=== PATIENT | female | born 1995 | race Caucasian/White ===

== ENCOUNTER 2016-11-13 14:12 | Emergency (ER) | payer OTHER ==
[2015-05-22 05:38] VITALS: BMI 33.3
[~2016-11-13 14:12] MED LIST: FERROUS SULFAT325 MG PO; IBUPROFEN600 MG PO; PERCOCET 5-3251 TAB PO; PRENATAL COMPLE1 TAB PO
== END 2016-11-13 19:00 | disposition home or self-care (01) ==
LOC: D.ER 14:12
DX: S60.212A Contusion of left wrist, initial encounter (principal); S30.1XXA Contusion of abdominal wall, initial encounter; V49.40XA Driver injured in collision with unspecified motor vehicles in traffic accident, initial encounter; Y93.89 Activity, other specified; Y92.410 Unspecified street and highway as the place of occurrence of the external cause; S16.1XXA Strain of muscle, fascia and tendon at neck level, initial encounter

== ENCOUNTER → 2017-02-13 22:10 | Outpatient (CLI) | payer OTHER ==
[2015-05-22 05:38] VITALS: BMI 33.3
[2017-02-13 22:41] LABS: APPEARANCE CLEAR (CLEAR); BILIRUBIN NEGATIVE (NEGATIVE); COLOR YELLOW (YELLOW); GLUCOSE NEGATIVE (NEGATIVE); KETONE NEGATIVE (NEGATIVE); LEUKOCYTE ESTERASE NEGATIVE (NEGATIVE); NITRITE NEGATIVE (NEGATIVE); PROTEIN NEGATIVE (NEGATIVE); SPECIFIC GRAVITY 1.015 (1.005-1.020); UROBILINOGEN NORMAL (NORMAL)
== END | disposition home or self-care (01) ==
LOC: D.LDO 22:10
PROVIDERS: Obstetrics & Gynecology
DX: O26.893 Other specified pregnancy related conditions, third trimester (principal); Z3A.31 31 weeks gestation of pregnancy

== ENCOUNTER → 2017-03-29 20:06 | Outpatient (CLI) | payer MEDICAID ==
[2015-05-22 05:38] VITALS: BMI 33.3
[2017-03-29 21:18] LABS: APPEARANCE CLEAR (CLEAR); BILIRUBIN NEGATIVE (NEGATIVE); COLOR YELLOW (YELLOW); GLUCOSE NEGATIVE (NEGATIVE); KETONE NEGATIVE (NEGATIVE); LEUKOCYTE ESTERASE 1+ (NEGATIVE); NITRITE NEGATIVE (NEGATIVE); PROTEIN NEGATIVE (NEGATIVE); SPECIFIC GRAVITY 1.005 (1.005-1.020); UROBILINOGEN NORMAL (NORMAL)
[2017-03-29 21:20] LABS: BACTERIA FEW /hpf (NONE SEEN); WHITE CELLS - URINE 0-5 /hpf (0-5)
== END | disposition home or self-care (01) ==
LOC: D.LDO 20:06
PROVIDERS: Obstetrics & Gynecology
DX: Z34.83 Encounter for supervision of other normal pregnancy, third trimester (principal); Z3A.37 37 weeks gestation of pregnancy

== ENCOUNTER 2017-04-12 11:15 | Inpatient (IN) | payer MEDICAID ==
[~2017-04-12] VITALS: Ht 170.2 cm; Wt 105.7 kg
[2017-04-12 12:15] VITALS: BP 120/61; Ht 170.2 cm; Wt 105.7 kg
[2017-04-12 13:01] LABS: HEMATOCRIT 32.4 % (36.0-48.0); HEMOGLOBIN 10.5 g/dL (12-16); MCH 26.3 pg (26.0-34.0); MCHC 32.4 g/dL (31.0-37.0); MEAN PLATELET VOLUME 9.3 fL (7.4-10.4); RDW 13.4 % (11.5-14.5); WBC 9.9 10x3/uL (4.8-10.8)
[2017-04-12 19:08] VITALS: BP 126/67
--- NOTE | 2017-04-12 19:08 | NUR ---
RN TO PT BS FOR PRAVEEN. PT RESTING IN BED IN HIGH FOWLERS POSITION, IN NO ACUTE DISTRESS. PT IS A 21YO G2 NOW P2 WITH OF VIABLE MALE TODAY @ 1555. @ 39.2 WKS GESTATION. PT WITH SUPERFICIAL PERINIAL LACERATION AND REPAIR. AAOX3. HR REGULAR. LUNGS CTAB. ABDOMEN SOFT AND NON TENDER. BS ACTIVE TIMES 4. FUNDUS FIRM AND ML @ 1/U. LOCHIA RUBRA SMALL. PT HAS NOT VOIDED SINCE CATHETER WAS REMOVED PRIOR TO . PT STATES SHE HAS PASSED GAS BUT HAS NOT HAD A BM SINCE . EPIDURAL REMAINS IN PLACE BUT IS NOT INFUSING. DRESSING C/D/I. NS WITH 20 UNITS PITOCIN INFUSING VIA PUMP AT 25CC/HR TO EXISITING 18G IN LEFT WRIST. NO REDNESS OR EDEMA NOTED AT SITE. PT TOLERATING REGULAR DIET WITHOUT DIFFICULTY. PT WAS HAVING DIFFICULTY RAISING LEFT LEG, REMAINED NUMB. PT CAN NOW LIFT BOTH LEGS AND IS HAVING NO DIFFICULTY MOVING. WILL PREPARE TO AMBULATE PT TO BR AND PERFORM JESSE CARE. PT TOLERATING REGULAR DIET WITHOUT DIFFICULTY. BED IN LOW POSITION, SIDE RAILS UP TIMES 2, CALL LIGHT AND PHONE IN REACH. SO REMAINS AT PT BS FOR SUPPORT AND ASSISTANCE. WILL CONT TO MONITOR PT STATUS.
--- NOTE | 2017-04-12 19:30 | NUR ---
PP ROOM 1257 PREPARED FOR PT TRANSFER. RN RETURNS TO PT ROOM TO ASSIST PT TO BR. PT NOW INFANT. PT INSTRUCTED TO CALL WHEN BREASTFEED WAS COMPLETE TO AMBULATE. PT VERBALIZED UNDERSTANDING. BED IN LOW POSITION, SIDE RAILS UP TIMES 2, CALL LIGHT AND PHONE IN REACH. INFANT REMAINS AT PT BS FOR COUPLET CARE. SO REMAINS AT PT BS FOR SUPPORT AND ASSISTANCE. WILL CONT TO MONITOR PT STATUS.
--- NOTE | 2017-04-12 20:43 | NUR ---
RN CALLED TO PT BS. PT STATES SHE IS DONE AND READY TO AMBULATE. PT FAMILY TAKEN TO CLEAN PP ROOM 1257. INFANT TRANSFERED TO NURSERY VIA OPEN CRIB WHILE TRANSPORTING FAMILY, THEN TRANSPORTED TO ROOM 1257 TO CONT COUPLET CARE WITH FOB. ID BANDS VERIFIED TIMES 2. RN RETURNS TO PT ROOM. IV SALINE LOCKED. EPIDURAL REMOVED, TIP INTACT. TIP SHOWN TO PT FOR VERIFICATION. PT AMBULATED TO BR WITH MINIMAL ASSISTANCE. PT ABLE TO VOID. JESSE CARE PERFORMED USING BETADINE AND WATER. PT CLEANED SELF WITH WASH CLOTHES. CLEAN GOWN PLACED. JESSE PAD AND PANTIES PLACED. PT AMBULATED TO CLEAN PP ROOM 1257 TO JOIN FOB AND INFANT. PT AMBULATED WITHOUT DIFFICULTY. PT C/O PAIN, RATES 6/10, REQUESTS MEDICATION. 1 TAB IBUPROFEN AND 1 TAB DEMEROL 50MG PROVIDED TO PT AT THIS TIME. 2100 DOSE OF MOM PROVIDED. FRESH LINENS PLACED IN ROOM WITH ADDITIONAL JESSE CARE SUPPLIES. LINENS PROVIDED TO PT FOB FOR NIGHT. PT DENIES ANY FURTHER NEEDS AT THIS TIME. BED IN LOW POSITION, SIDE RAILS UP TIMES 2, CALL LIGHT AND PHONE IN REACH. SO REMAINS AT PT BS FOR SUPPORT AND ASSISTANCE. REMAINS AT PT BS FOR COUPLET CARE. WILL CONT TO MONITOR PT STATUS.
--- NOTE | 2017-04-12 21:51 | NUR ---
RN TO PT BS FOR ROUNDS. PT RESTING IN BED IN SEMI-FOWLERS POSITION, HOLDING , PT IN NO ACUTE DISTESS. PT DENIES ANY NEEDS AT THIS TIME. BED IN LOW POSITION, SIDE RAILS UP TIMES 2, CALL LIGHT AND PHONE IN REACH. INFANT REMAINS AT PT BS FOR COUPLET CARE. SO REMAINS AT PT BS FOR SUPPORT AND ASSISTANCE. WILL CONT TO MONITOR PT STATUS.
--- NOTE | 2017-04-12 23:37 | NUR ---
RN TO PT BS FOR ROUNDS. PT RESTING IN BED IN SEMI-FOWLERS POSITION, HOLDING , IN NO ACUTE DISTRESS. PT REQUESTS TEMP BE ADJUSTED IN ROOM. PROVIDED. PT DENIES ANY FURTHER NEEDS AT THIS TIME. INFANT REMAINS AT PT BS FOR COUPLET CARE. SO REMAINS AT PT BS FOR SUPPORT AND ASSISTANCE. WILL CONT TO MONITOR PT STATUS.
--- NOTE | 2017-04-13 01:35 | NUR ---
RN TO PT BS FOR ROUNDS. PT RESTING IN BED IN SEMI-FOWLERS POSITION, WITH EYES CLOSED, IN NO ACUTE DISTRESS. RESPIRATIONS EVEN AND UNLABORED. BED IN LOW POSITION, SIDE RAILS UP TIMES 2, CALL LIGHT AND PHONE IN REACH. REMAINS AT PT BS FOR COUPLET CARE. SO REMAINS AT PT BS FOR SUPPORT AND ASSISTANCE. WILL CONT TO MONITOR PT STATUS.
--- NOTE | 2017-04-13 03:10 | NUR ---
RN TO PT BS FOR ROUNDS. PT RESTING IN BED IN SEMI-FOWLERS POSITION INFANT. PT IN NO ACUTE DISTRESS. PT DENIES ANY NEEDS AT THIS TIME. TREAT BOX PROVIDED TO PT, SANDWICH TRAY PROVIDED TO PT SO. BED IN LOW POSITION, SIDE RAILS UP TIMES 2, CALL LIGHT AND PHONE IN REACH. SO REMAINS AT PT BS FOR SUPPORT AND ASSISTANCE. INFANT REMAINS AT PT BS FOR COUPLET CARE. WILL CONT TO MONITOR PT STATUS.
--- NOTE | 2017-04-13 05:11 | NUR ---
PAIN /, REQUESTS DEMEROL AND MOTRIN, STATES THAT SHE IS CRAMPING AND HAVING BURNING AND STINGING TO PERINEAL REPAIR. MEDS GIVEN PER REQUEST, DENIES ADDITIONAL NEEDS. S/O REMAINS AT BEDSIDE. BED IN LOW POSITION WITH UPPER SIDE RAILS RAISED X2. CL AND PHONE WITHIN PT REACH. WILL CONT TO MONITOR AND ASSIST PRN.
[2017-04-13 05:24] LABS: HEMATOCRIT 29.3 % (36.0-48.0); HEMOGLOBIN 9.4 g/dL (12-16); MCH 26.3 pg (26.0-34.0); MCHC 32.1 g/dL (31.0-37.0); MCV 82.1 fL (80.0-100.0); MEAN PLATELET VOLUME 9.3 fL (7.4-10.4); RBC 3.57 10x6/uL (4.00-5.40); RDW 13.5 % (11.5-14.5); WBC 10.8 10x3/uL (4.8-10.8)
[2017-04-13 07:24] LABS: RAPID PLASMA REAGIN Non Reactive (Non Reactive)
--- NOTE | 2017-04-13 07:30 | OP ---
PATIENT NAME: TRISHA IRVING MEDICAL RECORD: [id number] :94 LOCATION:[id number] ADMISSION DATE:04/12/17 SURGEON: REID MENDOZA MD DATE OF OPERATION: 04/12/2017 Delivery Note Spontaneous vaginal delivery of male weighing 8 pounds 3 ounces; 9 and 10 Apgars, no episiotomy, epidural anesthesia. Second-degree midline laceration repaired using 2-0 chromic suture. Spontaneous delivery of intact-appearing placenta. ESTIMATED BLOOD LOSS: 400 cc. COMPLICATIONS OF DELIVERY: None. TRANSINT:[id number] Voice Confirmation ID: [id number] DOCUMENT ID: [id number] REID MENDOZA MD at 0730 CC: [id number] DICTATION DATE: 04/12/17 1611 HAT BLOCKER: 04/12/17 1918 ADM IN [facility] [address] [place] [address]
--- NOTE | 2017-04-13 07:30 | NUR ---
Assessment completed as charted on flowsheet. Pt rates pain at 3/10. NO pain or discomfort with voids, fundus firm at u/u with light bleeding, she denies any clots with voids. Family at bedside, in crib. Pt denies any needs.
--- NOTE | 2017-04-13 09:00 | NUR ---
Explained to pt that due to pt volume would she be ok to transfer back to l/d until time of discharge, she is agreeable and denies any concerns. Amb to room 1278, orient room and nursery notified.
--- NOTE | 2017-04-13 10:45 | NUR ---
Large cup of ice per pt request. Continue to rate pain at 3/10 and denies any other needs at this time.
--- NOTE | 2017-04-13 11:32 | NUR ---
50MG DEMEROL X1 TAB AND 600MG MOTRIN X1 TAB GIVEN PER PT REQUEST FOR PAIN RATED 8/10 DESCRIBED CRAMPING. PT DENIES FURTHER NEEDS AT THIS TIME.
--- NOTE | 2017-04-13 12:08 | NUR ---
PT DENIES PAIN AT THIS TIME AND RATES AT 0/10, NO NEEDS VOICED AT THIS TIME.
--- NOTE | 2017-04-13 15:09 | NUR ---
ICE CHIPS PROVIDED PER PT REQUEST. PT DENIES FURTHER NEEDS. FAMILY AT BEDSIDE FOR SUPPORT.
--- NOTE | 2017-04-13 16:20 | NUR ---
INFANT TAKEN TO NURSERY, PT DENIES ANY NEEDS.
--- NOTE | 2017-04-13 16:45 | NUR ---
VERBAL AND WRITTEN D/C INSTRUCTIONS GONE OVER WITH PT AND SPOUSE. PATIENT PROVIDED WITH WRITTEN SCRIPT FOR MOTRIN 600MG. NO CONCERNS OR QUESTIONS VOICED AT THIS TIME. BUCKLED INTO CARRIER, PT REFUSES WHEELCHAIR. WALKED OUT TO FRONT WITH THIS RN AND HOME BY PRIVATE CAR WITH SPOUSE.
== END 2017-04-13 17:00 | disposition home or self-care (01) | DRG 774 ==
LOC: D.LD 11:15
PROVIDERS: ADMIT Obstetrics & Gynecology
PROC: 0KQM0ZZ Repair Perineum Muscle, Open Approach (ICD-10-PCS; principal; 2017-04-12)
PROC: 10E0XZZ Delivery of Products of Conception, External Approach (ICD-10-PCS; 2017-04-12)
PROC: 10907ZC Drainage of Amniotic Fluid, Therapeutic from Products of Conception, Via Natural or Artificial Opening (ICD-10-PCS; 2017-04-12)
DX: O70.1 Second degree perineal laceration during delivery (principal); O98.52 Other viral diseases complicating childbirth; Z37.0 Single live birth; O36.0930 Maternal care for other rhesus isoimmunization, third trimester, not applicable or unspecified; Z3A.39 39 weeks gestation of pregnancy; O99.214 Obesity complicating childbirth

== ENCOUNTER 2019-06-11 18:08 | Emergency (ER) | payer MEDICAID ==
[~2019-06-11] VITALS: Ht 170.2 cm; Wt 105.0 kg
[2019-06-11 18:11] VITALS: Ht 170.2 cm; Wt 105.0 kg
[2019-06-11] MEDS ORDERED: ANXIETY MED (18:12)
[2019-06-11] MEDS ORDERED: BC IMPLANT (18:12)
[2019-06-11 19:20] LABS: BASOPHILS 0.2 % (0-2); EOSINOPHILS 1.4 % (0-7); HEMATOCRIT 38.7 % (36.0-48.0); HEMOGLOBIN 12.5 g/dL (12-16); IMMATURE GRANULOCYTES 0.2 % (0-5); MCH 27.5 pg (26.0-34.0); MCHC 32.3 g/dL (31.0-37.0); MCV 85.2 fL (80.0-100.0); MEAN PLATELET VOLUME 9.3 fL (7.4-10.4); NEUTROPHILS 54.2 % (40-80); PLATELET COUNT 220 10x3/uL (130-400); RBC 4.54 10x6/uL (4.00-5.40); RDW 13.2 % (11.5-14.5); WBC 4.2 10x3/uL (4.8-10.8)
[2019-06-11 19:29] LABS: APTT 25.7 SECONDS (22.8-39.4); INR 0.97 (0.85-1.17); PROTIME 12.3 SECONDS (11.6-15.0)
[2019-06-11 19:32] LABS: CALC OSMOLALITY 277 mosm/kg (275-300); CALCIUM 8.9 mg/dL (8.5-10.1); CHLORIDE - SERUM 105 mmol/L (98-107); CREATININE - SERUM 0.7 mg/dL (0.6-1.3); GLUCOSE 91 mg/dL (74-106); SODIUM 139 mmol/L (136-145); UREA NITROGEN 12 mg/dL (7-18); eGFR NON AFRICAN AMERICAN > 90 mL/min (90-120)
[2019-06-11 19:47] LABS: ALBUMIN 3.8 g/dL (3.4-5.0); ALKALINE PHOSPHATASE 106 U/L (46-116); ALT (SGPT) 27 U/L (10-68); BILIRUBIN - TOTAL 0.22 mg/dL (0.2-1.3); CREATINE KINASE 75 UL (21-215); PROTEIN - SERUM 7.8 g/dL (6.4-8.2)
[2019-06-11 19:48] LABS: TROPONIN-I < 0.017 ng/mL (0.000-0.060)
[2019-06-11 20:18] LABS: CKMB 0.2 U/L (0.0-3.6)
[2019-06-11 20:28] LABS: APPEARANCE HAZY (CLEAR); BILIRUBIN NEGATIVE (NEGATIVE); COLOR YELLOW (YELLOW); GLUCOSE NEGATIVE (NEGATIVE); KETONE NEGATIVE (NEGATIVE); NITRITE POSITIVE (NEGATIVE); PROTEIN NEGATIVE (NEGATIVE); SPECIFIC GRAVITY 1.015 (1.005-1.020); UROBILINOGEN NORMAL (NORMAL)
[2019-06-11 20:29] LABS: BACTERIA MANY /hpf (NEGATIVE); EPITHELIAL CELLS 0-5 /hpf (0-5); WHITE CELLS - URINE 0-5 /hpf (NEGATIVE)
[2019-06-11 20:30] LABS: RED CELLS - URINE OCC /hpf (0-5)
[2019-06-11] MEDS ORDERED: ACETAMINOPHEN500 M1 PO (21:13)
[2019-06-11] MEDS ORDERED: BUTALB-APAP-CA1 EACH PO (21:13)
[2019-06-11] MEDS ORDERED: KEFLEX500 MG PO (21:13)
[2019-06-11 22:30] VITALS: BP 126/78
== END 2019-06-11 22:20 | disposition home or self-care (01) ==
LOC: D.ER 18:08
PROVIDERS: Family Medicine
DX: G43.909 Migraine, unspecified, not intractable, without status migrainosus (principal); N39.0 Urinary tract infection, site not specified

== ENCOUNTER 2019-09-04 05:06 | Day surgery (SDC) | payer MEDICAID ==
[~2019-09-04] VITALS: Ht 170.2 cm; Wt 102.1 kg
[~2019-09-04 05:06] MED LIST changes: +ACETAMINOPHEN500 M1 PO; +ANXIETY MED; +BC IMPLANT; +BUTALB-APAP-CA1 EACH PO; +KEFLEX500 MG PO
[2019-09-04 05:43] LABS: BASOPHILS 0.5 % (0-2); EOSINOPHILS 2.8 % (0-7); HEMATOCRIT 37.3 % (36.0-48.0); HEMOGLOBIN 12.3 g/dL (12-16); IMMATURE GRANULOCYTES 0.3 % (0-5); LYMPHOCYTES 35.9 % (15-50); MCH 27.7 pg (26.0-34.0); MEAN PLATELET VOLUME 8.9 fL (7.4-10.4); MONOCYTES 9.9 % (2-11); NEUTROPHILS 50.6 % (40-80); RBC 4.44 10x6/uL (4.00-5.40); RDW 13.2 % (11.5-14.5); WBC 6.4 10x3/uL (4.8-10.8)
[2019-09-04 05:45] LABS: PLATELET COUNT 269 10x3/uL (130-400)
[2019-09-04 06:26] VITALS: BP 106/67; Ht 170.2 cm; Wt 102.1 kg
[2019-09-04 06:32] LABS: HCG URINE NEGATIVE (NEGATIVE)
[2019-09-04 06:34] LABS: CALC OSMOLALITY 283 mosm/kg (275-300); CALCIUM 9.1 mg/dL (8.5-10.1); CARBON DIOXIDE 26.1 mmol/L (21.0-32.0); CHLORIDE - SERUM 106 mmol/L (98-107); CREATININE - SERUM 0.7 mg/dL (0.6-1.3); GLUCOSE 96 mg/dL (74-106); POTASSIUM - SERUM 3.9 mmol/L (3.5-5.1); SODIUM 142 mmol/L (136-145); UREA NITROGEN 14 mg/dL (7-18); eGFR NON AFRICAN AMERICAN > 90 mL/min (90-120)
[2019-09-04] MEDS ORDERED: ULTRAM50 MG PO (08:43)
--- NOTE | 2019-09-04 09:33 | NUR ---
0930 FAMILY AT BEDSIDE TIME FRAME AND CRITERIA TO MEET PRIOR TO RELEASE REVIEWED.
--- NOTE | 2019-09-04 14:05 | OP ---
PATIENT NAME: TRISHA IRVING MEDICAL RECORD: [id number] :94 LOCATION:[facility] ADMISSION DATE: SURGEON: MICHAEL GALLAGHER MD DATE OF OPERATION: 09/04/2019 PREOPERATIVE DIAGNOSIS: Gallstones. POSTOPERATIVE DIAGNOSIS: Gallstones. PROCEDURE: Laparoscopic cholecystectomy. SURGEON: Michael Gallagher MD REPORT OF PROCEDURE: The patient's abdomen was prepped and draped in sterile fashion. A cutdown was made on the superior aspect of the umbilicus. 0 Vicryls were placed in the fascia bilaterally and the fascia was incised with 15-blade. I then bluntly entered the peritoneal cavity and placed a 12-mm Jordin port. Under direct visualization, a 5-mm trocar was placed in the epigastrium and 2 more 5-mm trocars were placed in the right subcostal region. The gallbladder was grasped and elevated. There was noted to be a large stone down at the infundibulum. We dissected out the cystic artery and cystic duct. These structures were clipped proximally and distally and ligated in standard fashion. The gallbladder was then taken off the liver bed using electrocautery. During dissection of the gallbladder, there was penetration of the gallbladder wall and there was spillage of clear fluid consistent with a hydrops gallbladder. We irrigated out the right upper quadrant and any bleeding from the liver bed was treated with electrocautery. At this point, the ports and insufflation were then removed and the gallbladder was taken out through the umbilicus in an EndoCatch bag. We irrigated out the wounds with normal saline and then infused a total of 10 mL of 0.25% Marcaine with epinephrine. The fascial incision was closed at the umbilicus using interrupted 0 Vicryls times 3 and the skin incisions were closed with running subcutaneous 5-0 Monocryl. COMPLICATIONS: None. CONDITION: Stable. ANESTHESIA: General endotracheal and local. BLOOD LOSS: Minimal. TRANSINT:[id number] Voice Confirmation ID: [id number] DOCUMENT ID: [id number] MICHAEL GALLAGHER MD at 1405 CC: RADHA RUTHERFORD [id number] DICTATION DATE: 09/04/19 0848 COMMUNITY DEVELOPMENT AIDE: 09/04/19 0914 [facility] 09/04/19 [facility] [address] [place] [place] [address]
== END 2019-09-04 11:00 | disposition home or self-care (01) ==
LOC: D.OPS 05:06 → D.PAN 07:30 → D.OPS 11:00
PROVIDERS: ATTEND Surgery
DX: K80.20 Calculus of gallbladder without cholecystitis without obstruction (principal)

== ENCOUNTER 2020-03-01 23:06 | Emergency (ER) | payer MEDICAID ==
[~2020-03-01] VITALS: Ht 170.2 cm; Wt 63.6 kg
[~2020-03-01 23:06] MED LIST changes: +ULTRAM50 MG PO
[2020-03-01 23:22] VITALS: Ht 170.2 cm; Wt 63.6 kg
[2020-03-01] MEDS ORDERED: TOPAMAX50 MG PO (23:24)
[2020-03-02 01:34] LABS: BILIRUBIN NEGATIVE (NEGATIVE); GLUCOSE NEGATIVE (NEGATIVE); KETONE NEGATIVE (NEGATIVE); NITRITE NEGATIVE (NEGATIVE); SPECIFIC GRAVITY 1.015 (1.005-1.020); UROBILINOGEN NORMAL (NORMAL)
[2020-03-02 02:38] VITALS: BP 105/57
== END 2020-03-02 02:39 | disposition home or self-care (01) ==
LOC: D.ER 23:06
PROVIDERS: Emergency Medicine
DX: G43.909 Migraine, unspecified, not intractable, without status migrainosus (principal)